=== PATIENT | male | born 1960 | race American Indian/Alaskan Native ===

== ENCOUNTER 2019-03-29 17:24 | Emergency (ER) | payer SELFPAY ==
[2019-03-29] MEDS ORDERED: ASPIRIN 325 MG TAB PO ONE (17:39)
[2019-03-29 18:44] LABS: Hematocrit 45.7 % (35.5-45.6); Hemoglobin 15.1 gm/dl (11.8-15.2); Mean Corpuscular HGB Conc 33 % (32-34); Mean Corpuscular Volume 93 fl (84-94); Platelet Count 159 K/mm3 (140-440); Red Cell Distribution Width 15.1 % (13.2-15.2)
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
[2019-03-29 19:06] LABS: BUN/Creatinine Ratio 24; Blood Urea Nitrogen 24 mg/dL (9-20); Calcium 8.9 mg/dL (8.4-10.2); Hemolysis Index 29
[2019-03-29 19:28] LABS: Basophils % (Manual) 0 % (0.0-1.8); Eosinophils % (Manual) 0 % (0.0-4.3); Total Cells Counted 100
[2019-03-29 19:29] LABS: Anisocytosis Few; Platelet Estimate Consistent w Auto; Poikilocytosis Few
[2019-03-30] MEDS ORDERED: cloNIDine 0.1 MG TAB PO ONE (04:25)
[2019-03-30] MEDS ORDERED: ONDANSETRON 4 MG/2 ML INJ IV ONE (04:25)
[2019-03-30] MEDS ORDERED: HYDROmorphone 1 MG/1 ML INJ IV ONE (04:25)
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
[2019-03-30 07:07] VITALS: BP 161/96
== END 2019-03-30 07:06 | disposition other institution (70) ==
LOC: ED 17:24
DX: S22.20XA Unspecified fracture of sternum, initial encounter for closed fracture (principal); S20.20XA Contusion of thorax, unspecified, initial encounter; Z98.890 Other specified postprocedural states; Y04.0XXA Assault by unarmed brawl or fight, initial encounter; Y93.89 Activity, other specified; Y92.89 Other specified places as the place of occurrence of the external cause; Y99.8 Other external cause status
CPT/HCPCS: 36415; 71111; 71275; 80048; 82140; 84484; 85007; 85025; 93005; 93010; 96374; 96375; 99285; J1170; J2405; Q9967